=== PATIENT | male | born 1995 | race Caucasian/White ===

== ENCOUNTER 2016-08-01 00:02 | Emergency (ER) | payer OTHER ==
--- NOTE | 2016-08-01 00:16 | EDPHY ---
H & P Stated Complaint: burning with urination, fever HPI/ROS: HPI CHIEF COMPLAINT: Dysuria, bilateral flank pain, subjective fever, chills HISTORY OF PRESENT ILLNESS: This patient otherwise healthy 20-year-old male, denies any significant medical history does not take any daily medications he presents to the emergency room with 2 days of urinary dysuria, burning when he urinates, concentrated dark yellow urine, and bilateral flank pain. Denies foul smell. He also reports he has had subjective fever at home. With chills. Nausea present. No vomiting. No history of kidney disease or genitourinary disease. Denies history of STI. States he has no rash or drainage from his penis. No testicular pain. No abdominal pain. Patient tells me that he has intercourse with multiple female partners. No history of STI. Patient tells me circumcised. Past Medical History: No medical history Past Surgical History: No surgical history Social History: Smokes tobacco, smokes marijuana, occasional alcohol use, [employer] student Family History: Noncontributory ROS REVIEW OF SYSTEMS: A comprehensive 10 point review of systems is otherwise negative aside from elements mentioned in the history of present illness. Exam Constitutional appears well nontoxic, triage nursing summary reviewed, vital signs reviewed, awake/alert. Eyes normal conjunctivae and sclera, EOMI, PERRLA. HENT normal inspection, atraumatic, moist mucus membranes, no epistaxis, neck supple/ no meningismus, no raccoon eyes. Respiratory clear to auscultation bilaterally, normal breath sounds, no respiratory distress, no wheezing. Cardiovascular rate normal, regular rhythm, no murmur, no edema, distal pulses normal. Gastrointestinal soft, non-tender, no rebound, no guarding, normal bowel sounds, no distension, no pulsatile mass. Genitourinary bilateral CVA tenderness Musculoskeletal no midline vertebral tenderness, full range of motion, no calf swelling, no tenderness of extremities, no meningismus, good pulses, neurovascularly intact. Skin pink, warm, & dry, no rash, skin atraumatic. Neurologic awake, alert and oriented x 3, AAOx3, moves all 4 extremities equally, motor intact, sensory intact, CN II-XII intact, normal cerebellar, normal vision, normal speech. Psychiatric normal mood/affect. Heme/Lymph/Immune no lymphadenopathy. Differential Diagnosis: Includes but is not limited to in a particular order, UTI, cystitis, pyelonephritis, kidney stone. Medical Decision Making: Plan for this pulmonary patient IV establishment IV fluid bolus, IV Zofran for nausea, check blood work, urinalysis, clean catch and dirty catch, ultrasound kidneys. Re-evaluation: Ultrasound of the retroperitoneum. The results of the study are negative for acute abnormality specifically no hydro or kidney stones.. I discussed the results of this study with the radiologist Dr. Ga [id number]: Re-evaluation this time patient is resting comfortably. He denies pain at this time. Blood work, ultrasound were all reviewed urinalysis negative. I explained that they should call 24 hours about his STI results. Declined impaired treatment here. I also referred him to Urology is I do not have a great explanation for his bilateral kidney pain with normal ultrasound and blood work normal urinalysis. He understands return emergency room if develops any worsening symptoms includes worsening pain, abdominal pain, flank pain, fever, vomiting or questions or concerns. Source: Patient - Personal History Current Tetanus Diphtheria and Acellular Pertussis (TDAP): Yes - Medical/Surgical History Hx Asthma: No Hx Chronic Respiratory Disease: No Hx Diabetes: No Hx Cardiac Disease: No Hx Renal Disease: No Hx Cirrhosis: No Hx Alcoholism: No Hx HIV/AIDS: No Hx Splenectomy or Spleen Trauma: No Other PMH: panic attacks - Social History Smoking Status: Current some day smoker Constitutional: Initial Vital Signs Temperature (C) 37 C 08/01/16 00:08 Heart Rate 86 08/01/16 00:08 Respiratory Rate 16 08/01/16 00:08 Blood Pressure 136/59 H 08/01/16 00:08 O2 Sat (%) 95 08/01/16 00:08 O2 Delivery Mode Room Air Allergies/Adverse Reactions: No Known Allergies Allergy (Unverified 06/11/14 19:36) Home Medications: Medication Instructions Recorded LORazepam [Ativan (*)] 1 mg PO DAILY PRN 02/19/15 Tylenol 08/01/16 Medical Decision Making - Data Points Laboratory Results: Laboratory Results 08/01/16 00:30 08/01/16 00:30 08/01/16 08/01/16 08/01/16 00:30 00:30 00:20 WBC 4.93 10^3/uL 10^3/uL (3.80-9.50) RBC 4.90 10^6/uL 10^6/uL (4.40-6.38) Hgb 15.8 g/dL g/dL (13.7-17.5) Hct 42.9 % % (40.0-51.0) MCV 87.6 fL fL (81.5-99.8) MCH 32.2 pg pg (27.9-34.1) MCHC 36.8 g/dL H g/dL (32.4-36.7) RDW 11.5 % % (11.5-15.2) Plt Count 144 10^3/uL L 10^3/uL (150-400) MPV 10.2 fL fL (8.7-11.7) Neut % (Auto) 70.4 % % (39.3-74.2) Lymph % (Auto) 13.4 % L % (15.0-45.0) [place] % (Auto) 12.8 % % (4.5-13.0) Eos % (Auto) 1.6 % % (0.6-7.6) Baso % (Auto) 0.4 % % (0.3-1.7) Nucleat RBC Rel Count 0.0 % % (0.0-0.2) Absolute Neuts (auto) 3.47 10^3/uL 10^3/uL (1.70-6.50) Absolute Lymphs (auto) 0.66 10^3/uL L 10^3/uL (1.00-3.00) Absolute Monos (auto) 0.63 10^3/uL 10^3/uL (0.30-0.80) Absolute Eos (auto) 0.08 10^3/uL 10^3/uL (0.03-0.40) Absolute Basos (auto) 0.02 10^3/uL 10^3/uL (0.02-0.10) Absolute Nucleated RBC 0.00 10^3/uL 10^3/uL (0-0.01) Immature Gran % 1.4 % H % (0.0-1.1) Immature Gran # 0.07 10^3/uL 10^3/uL (0.00-0.10) Sodium 139 mEq/L mEq/L (134-144) Potassium 3.6 mEq/L mEq/L (3.5-5.2) Chloride 103 mEq/L mEq/L (97-110) Carbon Dioxide 25 mEq/l mEq/l (22-31) Anion Gap 11 mEq/L mEq/L (8-16) BUN 11 mg/dL mg/dL (7-23) Creatinine 1.0 mg/dL mg/dL (0.7-1.3) Estimated GFR > 60 Glucose 93 mg/dL mg/dL (70-100) Calcium 9.2 mg/dL mg/dL (8.5-10.4) Total Bilirubin 1.0 mg/dL mg/dL (0.1-1.4) Conjugated Bilirubin 0.6 mg/dL H mg/dL (0.0-0.5) Unconjugated Bilirubin 0.4 mg/dL mg/dL (0.0-1.1) AST 35 IU/L IU/L (17-59) ALT 38 IU/L IU/L (21-72) Alkaline Phosphatase 85 IU/L IU/L (38-126) Total Protein 7.4 g/dL g/dL (6.3-8.2) Albumin 4.4 g/dL g/dL (3.5-5.0) Lipase 102.0 IU/L IU/L (23-300) Urine Color Urine Appearance Urine pH Ur Specific [place] Urine Protein Urine Ketones Urine Blood Urine Nitrate Urine Bilirubin Urine Urobilinogen Ur Leukocyte Esterase Urine Glucose N.gonorrhoeae RNA (TMA) Pending 08/01/16 00:20 WBC RBC Hgb Hct MCV MCH MCHC RDW Plt Count MPV Neut % (Auto) Lymph % (Auto) [place] % (Auto) Eos % (Auto) Baso % (Auto) Nucleat RBC Rel Count Absolute Neuts (auto) Absolute Lymphs (auto) Absolute Monos (auto) Absolute Eos (auto) Absolute Basos (auto) Absolute Nucleated RBC Immature Gran % Immature Gran # Sodium Potassium Chloride Carbon Dioxide Anion Gap BUN Creatinine Estimated GFR Glucose Calcium Total Bilirubin Conjugated Bilirubin Unconjugated Bilirubin AST ALT Alkaline Phosphatase Total Protein Albumin Lipase Urine Color YELLOW Urine Appearance MODERATELY TURBID Urine pH 7.0 (5.0-7.5) Ur Specific [place] 1.020 (1.002-1.030) Urine Protein NEGATIVE (NEGATIVE) Urine Ketones NEGATIVE (NEGATIVE) Urine Blood NEGATIVE (NEGATIVE) Urine Nitrate NEGATIVE (NEGATIVE) Urine Bilirubin NEGATIVE (NEGATIVE) Urine Urobilinogen NEGATIVE EU EU (0.2-1.0) Ur Leukocyte Esterase NEGATIVE (NEGATIVE) Urine Glucose NEGATIVE (NEGATIVE) N.gonorrhoeae RNA (TMA) Departure - Departure Disposition: Home, Routine, Self-Care Clinical Impression: Kidney pain Condition: Good Instructions: Flank Pain (ED) Additional Instructions: 1. Return emergency room if he develops any worsening symptoms questions concerns includes worsening abdominal pain flank pain, fever vomiting. 2. I do recommend you follow up with Urology on outpatient basis. Referrals: NONE *PRIMARY CARE P,. [Primary Care Provider] - As per Instructions Santiago Huerta MD [Medical Doctor] - As per Instructions
[2016-08-01] MEDS ORDERED: NS 1,000 ML IV ONE (00:24)
[2016-08-01] MEDS ORDERED: ONDANSETRON 4 MG/2 ML VIAL IVP ONE (00:24)
[2016-08-01 00:34] LABS: COLOR YELLOW; LEUKOCYTE ESTERASE,URINE NEGATIVE (NEGATIVE); NITRITE,URINE NEGATIVE (NEGATIVE)
[2016-08-01 00:56] LABS: % IMMATURE GRANULYOCYTES 1.4 % (0.0-1.1); ABSOLUTE IMMATURE GRANULOCYTES 0.07 10^3/uL (0.00-0.10); ADD DIFF? NO; ADD MORPH? NO; ADD SCAN? NO; ATYPICAL LYMPHOCYTE FLAG 0 (0-99); FRAGMENT RBC FLAG 0 (0-99); HEMATOCRIT 42.9 % (40.0-51.0); HEMOGLOBIN 15.8 g/dL (13.7-17.5); LEFT SHIFT FLG 30 (0-99); LIPEMIA HEMOLYSIS FLAG 90 (0-99); MEAN CELL HEMOGLOBIN 32.2 pg (27.9-34.1); MEAN CELL HEMOGLOBIN CONCENTR. 36.8 g/dL (32.4-36.7); MEAN CELL VOLUME 87.6 fL (81.5-99.8); MEAN PLATELET VOLUME 10.2 fL (8.7-11.7); PLATELET CLUMPS FLAG 20 (0-99); PLATELET COUNT 144 10^3/uL (150-400); RED CELL DISTRIBUTION WIDTH 11.5 % (11.5-15.2)
[2016-08-01 01:02] LABS: ALANINE AMINOTRANSFERASE 38 IU/L (21-72); ALBUMIN 4.4 g/dL (3.5-5.0); ALKALINE PHOSPHATASE 85 IU/L (38-126); ANION GAP 11 mEq/L (8-16); ASPARTATE AMINOTRANSFERASE 35 IU/L (17-59); BILIRUBIN-CONJUGATED 0.6 mg/dL (0.0-0.5); BILIRUBIN-UNCONJUGATED 0.4 mg/dL (0.0-1.1); CALCIUM 9.2 mg/dL (8.5-10.4); CARBON DIOXIDE 25 mEq/l (22-31); CHLORIDE 103 mEq/L (97-110); GLOMERULAR FILTRATION RATE > 60; GLUCOSE 93 mg/dL (70-100); POTASSIUM 3.6 mEq/L (3.5-5.2); SODIUM 139 mEq/L (134-144); TOTAL PROTEIN 7.4 g/dL (6.3-8.2)
[2016-08-01 02:02] VITALS: BP 130/66; PULSE 76; RESP 14; O2SAT 97
[2016-08-01 02:16] VITALS: TEMP 98.8
== END 2016-08-01 02:16 | disposition home or self-care (01) ==
DX: R10.9 Unspecified abdominal pain (principal); F17.200 Nicotine dependence, unspecified, uncomplicated
CPT/HCPCS: 96374; J2405

== ENCOUNTER 2017-05-28 00:39 | Emergency (ER) | payer OTHER ==
[2017-05-28 00:43] VITALS: RESP 18
[2017-05-28] MEDS ORDERED: ONDANSETRON DISINTEGRATING 4 MG TAB PO ONE (00:48)
--- NOTE | 2017-05-28 00:50 | EDPHY ---
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 He stopped drinking around 2:00 p.m. This afternoon. He presents emergency room completely sober but states that he has really hung over. He is requesting nausea medicine. He denies any headache or vomiting. He is drinking Gatorade while I am interviewing him in the room. Past Medical History: No significant medical history Past Surgical History: No significant surgical history Social History: [employer] student, large amount of alcohol earlier today. Family History: Noncontributory ROS REVIEW OF SYSTEMS: A comprehensive 10 point review of systems is otherwise negative aside from elements mentioned in the history of present illness. Exam Constitutional triage nursing summary reviewed, vital signs reviewed, awake/ alert. Eyes normal conjunctivae and sclera, EOMI, PERRLA. HENT normal inspection, atraumatic, moist mucus membranes, no epistaxis, neck supple/ no meningismus, no raccoon eyes. Respiratory clear to auscultation bilaterally, normal breath sounds, no respiratory distress, no wheezing. Cardiovascular rate normal, regular rhythm, no murmur, no edema, distal pulses normal. Gastrointestinal soft, non-tender, no rebound, no guarding, normal bowel sounds, no distension, no pulsatile mass. Genitourinary no CVA tenderness. Musculoskeletal no midline vertebral tenderness, full range of motion, no calf swelling, no tenderness of extremities, no meningismus, good pulses, neurovascularly intact. Skin pink, warm, & dry, no rash, skin atraumatic. Neurologic awake, alert and oriented x 3, AAOx3, moves all 4 extremities equally, motor intact, sensory intact, CN II-XII intact, normal cerebellar, normal vision, normal speech. Psychiatric normal mood/affect. Heme/Lymph/Immune no lymphadenopathy. Differential Diagnosis: Includes but is not limited to in a particular order alcohol abuse earlier, alcohol intoxication earlier, dehydration, ongoing nausea from alcohol abuse Medical Decision Making: Plan for this patient he is taking Gatorade fine in the emergency room without vomiting. He appears well hydrated. He does not appear ill or systemically sick. Will give ODT Zofran and re-evaluate. Re-evaluation: 0148: Patient is feeling much better after oral Zofran. He is resting comfortably. No acute distress. Abdomen is soft. He is not vomiting. Vital signs are stable. He would like to be discharged. Return precautions discussed with him. He understands return emergency room if develops worsening abdominal pain fever vomiting. Source: Patient - Personal History Current Tetanus/Diphtheria Vaccine: Yes Current Tetanus Diphtheria and Acellular Pertussis (TDAP): Yes - Medical/Surgical History Hx Asthma: No Hx Chronic Respiratory Disease: No Hx Diabetes: No Hx Cardiac Disease: No Hx Renal Disease: No Hx Cirrhosis: No Hx Alcoholism: No Hx HIV/AIDS: No Hx Splenectomy or Spleen Trauma: No Other PMH: panic attacks - Social History Smoking Status: Current some day smoker Constitutional: Initial Vital Signs Temperature (C) 36.7 C 05/28/17 00:40 Heart Rate 111 H 05/28/17 00:40 Respiratory Rate 18 05/28/17 00:40 Blood Pressure 120/107 H 05/28/17 00:40 O2 Sat (%) 100 05/28/17 00:40 O2 Delivery Mode Room Air Allergies/Adverse Reactions: No Known Allergies Allergy (Unverified 05/28/17 00:39) Home Medications: Medication Instructions Recorded LORazepam [Ativan (*)] 1 mg PO DAILY PRN 02/19/15 Tylenol 08/01/16 Medical Decision Making - Data Points Medications Given: Discontinued Medications Ondansetron HCl (Zofran Odt) 4 mg PO EDNOW ONE Stop: 05/28/17 00:49 Last Admin: 05/28/17 00:52 Dose: 4 mg Departure - Departure Disposition: Home, Routine, Self-Care Clinical Impression: Nausea Condition: Good Instructions: Acute Nausea and Vomiting (ED) Additional Instructions: 1. I do recommend you eat and drink a bland diet over the next 24-48 hours. 2. No spicy fatty greasy foods. 3. Refrain from drinking alcohol. Referrals: NONE *PRIMARY CARE P,. [Primary Care Provider] - As per Instructions
[2017-05-28] MEDS ORDERED: ONDANSETRON 4MG PREPACK#2 BTL TAKEHOME ONE (01:46)
[2017-05-28 02:01] VITALS: BP 105/66; PULSE 94; TEMP 97.5; O2SAT 95
== END 2017-05-28 01:59 | disposition home or self-care (01) ==
DX: R11.0 Nausea (principal); F17.200 Nicotine dependence, unspecified, uncomplicated

== ENCOUNTER → 2017-10-25 | Outpatient (CLI) | payer OTHER | DX: M79.661 Pain in right lower leg (principal); M71.21 Synovial cyst of popliteal space [Baker], right knee ==

== ENCOUNTER 2018-05-15 22:11 | Emergency (ER) | payer OTHER ==
[2018-05-15] MEDS ORDERED: LIDOCAINE 2% VISCOUS 15 ML UDCUP PO ONE (22:38)
[2018-05-15] MEDS ORDERED: MAG HYDROX/AL HYDROX/SIMETH 30 ML UDCUP PO ONE (22:38)
--- NOTE | 2018-05-15 22:46 | EDPHY ---
H & P Stated Complaint: sharp sub sternal pain, pain takes breath away, hx acid reflux Time Seen by Provider: 05/15/18 22:25 HPI/ROS: Chief Complaint: Abdominal pain HPI: 22-year-old male presenting with epigastric pain which woke him from sleep last night. Pain is in his central upper abdomen. Little bit worse when he eats. No nausea vomiting. No diarrhea, some constipation. No blood in his stool or dark black bowel movements. He has had an episode of vomiting blood in the past was seen here and had endoscopy. He was told that he did have a lesion in the stomach. He is not currently on any medications. No fevers or chills. No chest pain or shortness of breath. No palpitations. He has not taken any medicine for this. ROS: 10 systems were reviewed and were negative except those elements noted in the HPI. PMH: GERD Social History: No smoking, no alcohol, no recreational drug use Family History: non-contributory Physical Exam: Gen: Awake, Alert, No Distress HEENT: Nose: no rhinorrhea Eyes: PERRLA, EOMI Mouth: Moist mucosa Neck: Supple, no JVD Chest: nontender, lungs clear to auscultation Heart: S1, S2 normal, no murmur Abd: Soft, moderate epigastric tenderness reproducing his presenting complaint, no guarding Back: no CVA tenderness, no midline tenderness Ext: no edema, non-tender Skin: no rash Neuro: CN II-XII intact, Sensation grossly intact, Strength 5/5 in bilateral upper and lower extremities - Personal History Current Tetanus/Diphtheria Vaccine: Yes Current Tetanus Diphtheria and Acellular Pertussis (TDAP): Yes - Medical/Surgical History Hx Asthma: No Hx Chronic Respiratory Disease: No Hx Diabetes: No Hx Cardiac Disease: No Hx Renal Disease: No Hx Cirrhosis: No Hx Alcoholism: No Hx HIV/AIDS: No Hx Splenectomy or Spleen Trauma: No Other PMH: panic attacks, acid reflux - Social History Smoking Status: Current some day smoker Constitutional: Initial Vital Signs Temperature (C) 37.1 C 05/15/18 22:13 Heart Rate 61 05/15/18 22:13 Respiratory Rate 18 05/15/18 22:13 Blood Pressure 153/92 H 05/15/18 22:13 O2 Sat (%) 99 05/15/18 22:13 O2 Delivery Mode Room Air Allergies/Adverse Reactions: No Known Allergies Allergy (Unverified 05/15/18 22:13) Home Medications: Medication Instructions Recorded NK [No Known Home Meds] 05/15/18 Medical Decision Making ED Course/Re-evaluation: 22-year-old with epigastric pain for the last day. Symptoms resolved with a GI cocktail. Symptoms consistent with peptic ulcer disease. He is not currently on any medications. Will discharge on daily for mode in, referral for outpatient follow-up with gastroenterology and primary care. - Data Points Medications Given: Discontinued Medications Al Hydroxide/Mg Hydroxide (Maalox Susp) 30 ml PO ONCE ONE Stop: 05/15/18 22:39 Last Admin: 05/15/18 22:43 Dose: 30 ml Lidocaine (Lidocaine 2% Viscous) 15 ml PO ONCE ONE Stop: 05/15/18 22:39 Last Admin: 05/15/18 22:43 Dose: 15 ml Departure - Departure Disposition: Home, Routine, Self-Care Clinical Impression: Peptic ulcer disease Condition: Good Instructions: Gastritis (ED), Diet for Stomach Ulcers and Gastritis (ED) Additional Instructions: Start taking famotidine daily, available [id number]. Follow up with Gastroenterology and primary care in 3-4 days for further evaluation. Return to the emergency department for worsening pain, vomiting blood, dark tarry stools, or any other concerns. Referrals: Monty Portillo MD [Medical Doctor] - As per Instructions Veronica Arroyo MD [Medical Doctor] - As per Instructions
[2018-05-15 23:35] VITALS: BP 106/77
== END 2018-05-15 23:34 | disposition home or self-care (01) ==
DX: K27.9 Peptic ulcer, site unspecified, unspecified as acute or chronic, without hemorrhage or perforation (principal)